=== PATIENT | male | born 1970 | race Caucasian/White ===

== ENCOUNTER 2021-07-13 06:42 | Emergency (ER) | payer BC ==
[~2021-07-13] VITALS: Ht 182.9 cm; Wt 81.6 kg
--- NOTE | 2021-07-13 06:57 | PHYS DOC ---
Adult General Chief Complaint Chief Complaint: SEIZURE HPI HPI The patient is a 51-year-old male with a history of hypertension and who is otherwise healthy. Family report only very occasional alcohol use and no drug use. Mr. Bass presents for evaluation of an apparent first-time generalized seizure which occurred on the floor beside his bed, witnessed by his prior to arrival overnight. He had generalized convulsions of arms and legs for about 30 seconds, bit his tongue and was postictal after the event. He was combative and attempting to punch EMS upon their arrival so they administered 10 mg of intramuscular Versed. GCS14 before Versed dose. During transport, patient was requiring nasal cannula oxygen supplementation after the Versed. Vital signs and blood glucose were appropriate for EMS. Upon arrival to the emergency department, patient is quite postictal but moves all extremities purposefully in response to stimulation. No signs of any trauma aside from a tongue bite. He does not provide any history. Review of Systems Review of Systems Unobtainable secondary to altered mental status/postictal state. Current Medications Current Medications Current Medications Medications (Trade) Dose Ordered Sig/Dottie Start Time Stop Time Status Last Admin Dose Admin Levetiracetam (Keppra) 500 mg 1X STAT 07/13/21 08:05 07/13/21 08:13 DC Allergies Allergies Allergies Coded Allergies Type Severity Reaction Last Updated Verified Penicillins Allergy Unknown 07/13/21 Yes Physical Exam Physical Exam 51-year-old male appearing nontoxic and in no acute distress. He is somnolent/postictal but localizes with all 4 extremities when stimulated. Head is normocephalic and atraumatic. Neck is supple and nontender. Oropharynx is moist. There is a small tongue bite on the right, hemostatic. No other oropharyngeal or posterior pharyngeal abnormalities. Lungs are clear to auscultation at all stations. There is a normal S1 and S2 without rubs or gallops and capillary refill is appropriate, less than 2 seconds globally. Abdomen is soft, nontender and nondistended. Skin is warm and dry without cyanosis, clubbing or edema. Psychiatrically, the patient cannot be assessed secondary to altered mental status/postictal state. Neurologically, patient moves all extremities equally, localizes with all 4 extremities to stimulation and no clear lateralizing deficits are seen. Current Patient Data Vital Signs Vital Signs Date Time Temp Pulse Resp B/P (MAP) Pulse Ox O2 Delivery O2 Flow Rate FiO2 07/13/21 07:42 98.2 85 18 107/73 (84) 99 Room Air 98.2 Lab Values Laboratory Tests Test 07/13/21 06:53 White Blood Count 13.3 x10^3/uL (4.0-11.0) H Red Blood Count 4.83 x10^6/uL (4.30-5.70) Hemoglobin 14.7 g/dL (13.0-17.5) Hematocrit 44.2 % (39.0-53.0) Mean Corpuscular Volume 91 fL (79-100) Mean Corpuscular Hemoglobin 30 pg (25-35) Mean Corpuscular Hemoglobin Concent 33 g/dL (31-37) Red Cell Distribution Width 12.9 % (11.5-14.5) Platelet Count 351 x10^3/uL (140-400) Neutrophils (%) (Auto) 65 % (31-73) Lymphocytes (%) (Auto) 24 % (24-48) Monocytes (%) (Auto) 6 % (0-9) Eosinophils (%) (Auto) 4 % (0-3) H Basophils (%) (Auto) 1 % (0-3) Neutrophils # (Auto) 8.7 x10^3/uL (1.8-7.7) H Lymphocytes # (Auto) 3.2 x10^3/uL (1.0-4.8) Monocytes # (Auto) 0.8 x10^3/uL (0.0-1.1) Eosinophils # (Auto) 0.5 x10^3/uL (0.0-0.7) Basophils # (Auto) 0.1 x10^3/uL (0.0-0.2) Prothrombin Time 12.9 SEC (11.7-14.0) Prothrombin Time INR 1.0 (0.8-1.1) Activated Partial Thromboplast Time 23 SEC (24-38) L Sodium Level 139 mmol/L (136-145) Potassium Level 4.4 mmol/L (3.5-5.1) Chloride Level 104 mmol/L (98-107) Carbon Dioxide Level 22 mmol/L (21-32) Anion Gap 13 (6-14) Blood Urea Nitrogen 10 mg/dL (8-26) Creatinine 1.3 mg/dL (0.7-1.3) Estimated GFR (Cockcroft-Gault) 58.2 BUN/Creatinine Ratio 8 (6-20) Glucose Level 151 mg/dL (70-99) H Calcium Level 8.6 mg/dL (8.5-10.1) Total Bilirubin 0.4 mg/dL (0.2-1.0) Aspartate Amino Transferase (AST) 10 U/L (15-37) L Alanine Aminotransferase (ALT) 41 U/L (16-63) Alkaline Phosphatase 85 U/L (46-116) Troponin I High Sensitivity 4 ng/L (4-75) Total Protein 6.8 g/dL (6.4-8.2) Albumin 3.8 g/dL (3.4-5.0) Albumin/Globulin Ratio 1.3 (1.0-1.7) Ethyl Alcohol Level < 10 mg/dL (0-10) Laboratory Tests 07/13/21 06:53 Laboratory Tests 07/13/21 06:53 EKG EKG Sinus rhythm, rate 90, no acute ST elevation or depression, IL 126, QRS 80, QTc 417, EP interpretation. Nonischemic tracing, intervals appropriate. Radiology/Procedures Radiology/Procedures CT HEAD/BRAIN WO Date: 07/13/2021 6:56 AM Clinical Indication: apparent first-time generalized seizure Comparison: None. Technique: 5 mm axial tomographic images were obtained of the head without contrast. These were viewed on brain and bone windows. One or more of the following dose reduction techniques were utilized: Automated exposure control (AEC), Adjustment of mA and/or kV according to patient size, Use of iterative reconstruction technique such as ASiR, CT scan done according to ALARA and image gently/image wisely Findings: The brain parenchyma is normal in attenuation. No intra- or extra-axial mass or fluid collection. No acute hemorrhage. The ventricles are normal in size, shape, and morphology. The parkinson-white matter junction is normal. The subarachnoid cisterns are patent. The visualized paranasal sinuses are normal. The visualized portions of the orbits and globes are normal. The mastoid air cells are clear. The flight manager topogram shows no lytic lesion or fracture. Impression: No acute intracranial process. Electronically signed by: Chris Newman MD (07/13/2021 7:14 AM) [id number] DICTATED and SIGNED BY: CHRIS NEWMAN MD DATE: 07/13/21 [id number] XR CHEST 1V INDICATION: Reason: apparent first-time generalized seizure / Spl. Instructions: / History: . COMPARISON STUDY: None. FINDINGS: Lungs: Normal lung volume. No pulmonary mass or consolidation. The tracheobronchial tree and hilar structures are normal. Pleura: No pleural effusion or pneumothorax. Heart and Mediastinum: The cardiomediastinal silhouette is normal. The great vessels of the thorax are normal. Bones and Soft Tissues: The bones and soft tissues are within normal limits. IMPRESSION: No consolidation. Electronically signed by: Chris Newman MD (07/13/2021 7:13 AM) [id number] DICTATED and SIGNED BY: CHRIS NEWMAN MD DATE: 07/13/21 [id number] 0 Course & Med Decision Making Course & Med Decision Making We will check first time seizure work-up as noted and will then reevaluate. 0830: Labs, EKG, chest x-ray and head CT are entirely without evidence of acute process. Patient is resting comfortably on serial reassessments with appropriate vital signs. He has completely returned to his neurocognitive baseline, is alert and oriented x4 and has a wholly nonfocal repeat neurologic exam. Case discussed in detail with Dr. Steiner of [facility] neurology who recommends discharge home with twice daily Keppra, outpatient EEG and close follow-up with neurology in the office. Patient is not to drive until cleared by neurology and this has been discussed with him and his family. He understands that if he feels worse instead of better, has recurrent symptoms or develops other new symptoms of concern that he should return to the emergency department right away for reevaluation. All questions are answered. Dragon Disclaimer Dragon Disclaimer This electronic medical record was generated, in whole or in part, using a voice recognition dictation system. Departure Departure Impression: Primary Impression: Other seizures Disposition: 01 HOME / SELF CARE / HOMELESS Condition: IMPROVED Patient Instructions: Seizure, Adult Additional Instructions: Follow-up very closely with your primary care doctor in the office in the next 2 to 4 days for a reevaluation of your symptoms and a discussion of next best steps in care. Our on-call neurologist recommends that you have your primary doctor order an electroencephalogram and an MRI of the brain on an outpatient basis as these are the next tests which will be needed to further explore the cause for the seizure that you had today. Drink plenty of fluids and get plenty of rest. Recommend abstaining from alcohol. Begin taking the Keppra antiseizure medication twice a day as prescribed to prevent seizures. Do not drive or swim unaccompanied until cleared to resume these activities by your neurologist. Return to the emergency department right away for worsening symptoms of any kind or with any other new symptoms of concern. We are providing a referral to [facility] for outpatient office followup. You may call them at [phone] to make an appointment to be seen. Suggest calling tomorrow (Wednesday) to make your appointment. Scripts Levetiracetam (KEPPRA) 500 Mg Tablet 1 TAB PO BID for 30 Days, #60 TAB 2 Refills Prov: NITO CARLOS MD 07/13/21 NITO CARLOS MD Jul 13, 2021 06:57
[2021-07-13 07:07] LABS: BASO # 0.1 x10^3/uL (0.0-0.2); BASO % 1 % (0-3); EOS # 0.5 x10^3/uL (0.0-0.7); EOS % 4 % (0-3); HEMATOCRIT 44.2 % (39.0-53.0); HEMOGLOBIN 14.7 g/dL (13.0-17.5); LYMPH # 3.2 x10^3/uL (1.0-4.8); LYMPH % 24 % (24-48); MEAN CORPUSCULAR HEMOGLOBIN 30 pg (25-35); MEAN CORPUSCULAR HGB CONC 33 g/dL (31-37); MEAN CORPUSCULAR VOLUME 91 fL (79-100); MONO # 0.8 x10^3/uL (0.0-1.1); MONO % 6 % (0-9); NEUT # 8.7 x10^3/uL (1.8-7.7); NEUT % 65 % (31-73); PLATELET COUNT 351 x10^3/uL (140-400); RED BLOOD COUNT 4.83 x10^6/uL (4.30-5.70); RED CELL DISTRIBUTION WIDTH 12.9 % (11.5-14.5); WHITE BLOOD COUNT 13.3 x10^3/uL (4.0-11.0)
--- NOTE | 2021-07-13 07:15 | RAD ---
XR CHEST 1V INDICATION: Reason: apparent first-time generalized seizure / Spl. Instructions: / History: . COMPARISON STUDY: None. FINDINGS: Lungs: Normal lung volume. No pulmonary mass or consolidation. The tracheobronchial tree and hilar st ructures are normal. Pleura: No pleural effusion or pneumothorax. Heart and Mediastinum: The cardiomediastinal silhouette is normal. The great vessels of the thorax ar e normal. Bones and Soft Tissues: The bones and soft tissues are within normal limits. IMPRESSION: No consolidation. Electronically signed by: Prosper Newman MD (07/13/2021 7:13 AM) [id number]
--- NOTE | 2021-07-13 07:16 | RAD ---
CT HEAD/BRAIN WO Date: 07/13/2021 6:56 AM Clinical Indication: apparent first-time generalized seizure Comparison: None. Technique: 5 mm axial tomographic images were obtained of the head without contrast. These were view ed on brain and bone windows. One or more of the following dose reduction techniques were utilized: A utomated exposure control (AEC), Adjustment of mA and/or kV according to patient size, Use of iterati ve reconstruction technique such as ASiR, CT scan done according to ALARA and image gently/image calderon ly Findings: The brain parenchyma is normal in attenuation. No intra- or extra-axial mass or fluid collection. No acute hemorrhage. The ventricles are normal in size, shape, and morphology. The parkinson-white matter lashawn ction is normal. The subarachnoid cisterns are patent. The visualized paranasal sinuses are normal. The visualized portions of the orbits and globes are no rmal. The mastoid air cells are clear. The talent scout topogram shows no lytic lesion or fracture. Impression: No acute intracranial process. Electronically signed by: Prosper Newman MD (07/13/2021 7:14 AM) [id number]
[2021-07-13 07:18] LABS: PROTHROMBIN TIME PATIENT 12.9 SEC (11.7-14.0)
[2021-07-13 07:24] LABS: CALCIUM 8.6 mg/dL (8.5-10.1); CREATININE 1.3 mg/dL (0.7-1.3); GFR 58.2; POTASSIUM 4.4 mmol/L (3.5-5.1)
[2021-07-13 07:29] LABS: ALBUMIN 3.8 g/dL (3.4-5.0); ALBUMIN/GLOBULIN RATIO 1.3 (1.0-1.7); TOTAL BILIRUBIN 0.4 mg/dL (0.2-1.0); TOTAL PROTEIN 6.8 g/dL (6.4-8.2)
[2021-07-13] MEDS ORDERED: levETIRAcetam 500 MG TABLET PO STA (08:05)
[2021-07-13 08:09] VITALS: BP 108/67
[2021-07-13] MEDS ORDERED: LEVE500T56 PO (08:27)
[2021-07-13 08:46] LABS: BARBITURATES NEG (NEG); BENZODIAZEPINES POS (NEG); CANNABINOIDS NEG (NEG); COCAINE NEG (NEG); METHADONE NEG (NEG); OPIATES NEG (NEG); PHENCYCLIDINE NEG (NEG)
[2021-07-13 08:47] LABS: AMPHETAMINE/METHAMPHETAMINE NEG (NEG)
--- NOTE | 2021-07-13 09:31 | EKG ---
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
== END 2021-07-13 08:40 | disposition home or self-care (01) ==
LOC: ER 06:42
DX: G40.89 Other seizures (principal); I10 Essential (primary) hypertension; Z88.0 Allergy status to penicillin
CPT/HCPCS: 36415; 70450; 71045; 80053; 80307; 84484; 85025; 85610; 85730; 93005; 99285; G0480